=== PATIENT | male | born 1995 | race Hispanic/Latino ===

== ENCOUNTER 2020-04-18 12:06 | Outpatient (CLI) | payer OTHER ==
--- NOTE | 2020-04-18 13:48 | MRI ---
EXAM: MRI Brain WO Con PROVIDED CLINICAL HISTORY: Headaches and paresthesias. COMPARISON: None FINDINGS: No signal abnormalities are seen throughout the brain. No evidence of an acute infarction. The septum pellucidum and third ventricle are in the midline. Appropriate flow voids are demonstrated in the large intracranial vessels at the base of the brain. Minimal mucosal thickening is seen in the bilateral maxillary antra and right ethmoidal air cells. Orbits and visualized skull base have a normal MRI appearance. IMPRESSION: No acute intracranial abnormality is demonstrated.
== END 2020-04-18 12:07 | disposition home or self-care (01) ==
LOC: MRI 12:06
PROVIDERS: ATTEND Psychiatry & Neurology Neurology
DX: R20.2 Paresthesia of skin (principal)
CPT/HCPCS: 70551